=== PATIENT | male | born 1970 | race Caucasian/White ===

== ENCOUNTER 2017-08-05 13:17 | Emergency (ER) | payer BC ==
[~2017-08-05] VITALS: Ht 172.7 cm; Wt 104.3 kg
== END 2017-08-05 14:07 | disposition home or self-care (01) ==
LOC: ER 13:17
DX: S91.331A Puncture wound without foreign body, right foot, initial encounter (principal); Z23 Encounter for immunization; F17.220 Nicotine dependence, chewing tobacco, uncomplicated; W45.0XXA Nail entering through skin, initial encounter
CPT/HCPCS: 90471; 90714; 99282